=== PATIENT | male | born 1975 | race Caucasian/White ===

== ENCOUNTER 2018-07-13 17:53 | Emergency (ER) | payer MEDICAID ==
[~2018-07-13] VITALS: Ht 182.9 cm; Wt 86.2 kg
[2018-07-13] MEDS ORDERED: AMOX500C2 PO (18:02)
--- NOTE | 2018-07-13 18:26 | NUR ---
Patient discharged to home in stable conditon. Written and verbal after care instructions given. Patient verbalizes understanding of instructions.
[2018-07-13] MEDS ORDERED: HYDROMORPHONE 1 MG/1 ML DISP.SYRIN IM ONE (18:30)
[2018-07-13] MEDS ORDERED: SULFAMETH/TRIMETH 800/160 MG TABLET PO ONE (18:30)
[2018-07-13] MEDS ORDERED: HYDROMORPHONE 1 MG/1 ML DISP.SYRIN ONE (18:35)
[2018-07-13] MEDS ORDERED: SULFAMETH/TRIMETH 800/160 MG TABLET ONE (18:35)
--- NOTE | 2018-07-13 18:41 | NUR ---
PT WITH . PT IS NOT DRIVING
== END 2018-07-13 18:42 | disposition home or self-care (01) ==
LOC: ER 17:56
DX: L02.01 Cutaneous abscess of face (principal); L02.11 Cutaneous abscess of neck; Z79.2 Long term (current) use of antibiotics
CPT/HCPCS: 96372; 99283; J1170; A4663